=== PATIENT | male | born 1985 | race Caucasian/White ===

== ENCOUNTER 2017-12-19 19:51 | Emergency (ER) | payer SELFPAY ==
[~2017-12-19] VITALS: Ht 177.8 cm; Wt 72.6 kg
[2017-12-19 19:57] VITALS: BP 121/83
== END 2017-12-20 00:06 | disposition left against medical advice (07) ==
LOC: EDBD 19:51 → ER 19:51
DX: M54.5 Low back pain (principal); G89.29 Other chronic pain; Z53.21 Procedure and treatment not carried out due to patient leaving prior to being seen by health care provider